=== PATIENT | female | born 1970 | race Two or more races ===

== ENCOUNTER 2018-03-21 10:21 | Outpatient (CLI) | payer BC, OTHER ==
[2018-03-21 10:53] LABS: BASOPHILS # (AUTO) 0.1 10^3/uL (0.0-0.1); BASOPHILS % (AUTO) 1.1 %; EOSINOPHILS # (AUTO) 0.2 10^3/uL (0.0-0.7); EOSINOPHILS % (AUTO) 2.3 %; HGB - HEMOGLOBIN 15.2 g/dL (12.0-16.0); LYMPHOCYTES # (AUTO) 2.9 10^3/uL (1.5-3.5); LYMPHOCYTES % (AUTO) 36.5 %; MEAN CORPUSCULAR HEMOGLOBIN 29.3 pg (27.0-31.0); MEAN CORPUSCULAR HGB CONC 35.4 g/dL (32.0-36.0); MEAN CORPUSCULAR VOLUME 82.8 fL (81.0-99.0); MEAN PLATELET VOLUME 7.6 fL (7.9-10.8); MONOCYTES # (AUTO) 0.4 10^3/uL (0.0-1.0); MONOCYTES % (AUTO) 4.6 %; NEUTROPHILS # (AUTO) 4.4 10^3/uL (1.5-6.6); NEUTROPHILS % (AUTO) 55.5 %; PLT - PLATELET COUNT 290 10^3/uL (130-450); RED BLOOD COUNT 5.18 10^6/uL (4.20-5.40); RED CELL DISTRIBUTION WIDTH 13.1 % (12.0-15.0)
[2018-03-21 11:24] LABS: ALBUMIN 4.3 g/dL (3.2-5.5); ALBUMIN/GLOBULIN RATIO 1.1 (1.0-2.2); ALKALINE PHOSPHATASE 73 IU/L (42-121); ALT ALANINE AMINOTRANSFERASE 37 IU/L (10-60); AST ASPARTATE AMINOTRANSFERASE 35 IU/L (10-42); BILIRUBIN,TOTAL 0.5 mg/dL (0.2-1.0); BUN - BLOOD UREA NITROGEN 16 mg/dL (6-20); CALCIUM 9.2 mg/dL (8.5-10.3); CARBON DIOXIDE - CO2 22 mmol/L (21-32); CHLORIDE 103 mmol/L (101-111); CHOL/HDL RATIO 3.9 (<4.4); CHOLESTEROL 163 mg/dL; CREATININE 0.7 mg/dL (0.4-1.0); GFR - MDRD 89 (>89); GLUCOSE 186 mg/dL (70-100); HDL CHOLESTEROL 42 mg/dL; LDL CHOLESTEROL,CALCULATED 80 mg/dL; LDL/HDL RATIO 1.9 (<4.4); SODIUM 134 mmol/L (135-145); TOTAL PROTEIN 8.1 g/dL (6.7-8.2); VLDL CHOLESTEROL 41 mg/dL
== END 2018-03-21 10:22 | disposition home or self-care (01) ==
LOC: LAB 10:21
PROVIDERS: ATTEND Obstetrics & Gynecology
DX: Z13.1 Encounter for screening for diabetes mellitus (principal); Z13.0 Encounter for screening for diseases of the blood and blood-forming organs and certain disorders involving the immune mechanism; Z13.220 Encounter for screening for lipoid disorders; Z13.21 Encounter for screening for nutritional disorder
CPT/HCPCS: 36415; 80053; 80061; 82306; 83721; 84443; 85025

== ENCOUNTER 2018-06-06 20:27 | Outpatient (CLI) | payer BC, OTHER ==
--- NOTE | 2018-06-07 11:06 | Ultrasound Report ---
Reason: ABD PERIMENOPAUSAL BLEEDING Procedure Date: 06/06/2018 Accession Number: [id number] Procedure: US - Pelvic w/Transvaginal CPT Code: FULL RESULT: EXAM: PELVIC ULTRASOUND EXAM DATE: 06/06/2018 09:17 PM. CLINICAL HISTORY: ABD PERIMENOPAUSAL BLEEDING. COMPARISON: None. TECHNIQUE: Realtime transabdominal pelvic scan performed to identify the uterus and adnexa and as an overview of other pelvic structures, followed by transvaginal scan to provide greater detail of the uterus and adnexa, with static image documentation. FINDINGS: Uterus: 8.4 x 4.1 x 7 cm, volume 126 cc. Anteverted position. Normal overall size and echotexture. Masses: None. Endometrium: 8 mm in the fundus. Echogenic thickened appearance, typical of secretory phase. Fundally, suggestion of 4 mm thick endometrial content iso-echoic to the endometrium. Separately, there is a echogenic focus within the endometrial soft tissue posteriorly, hyperechoic to endometrium, 0.7 x 0.6 x 0.5 cm and without demonstrable vascularity by color Doppler. Cervix: Unremarkable. Right Ovary: 1.4 x 1.0 x 2.0 cm, volume 1.5 cc. Normal echotexture and blood flow. Left Ovary: 3.5 x 1.9 x 2.5 cm, volume approximately cc. Normal echotexture and blood flow. Free Fluid: None. Other: None. IMPRESSION: 8 mm thick echogenic endometrium, appearance typical of secretory phase. Hyperechoic 0.7 cm focus/nodule within the endometrial layer in the posterior fundus. 4 mm thick fundal content within the endometrium. RADIA The above findings foci within the endometrium were discussed with the medical office nurse Megan on behalf of Frank Deshpande by Dr. Harjinder Sommers at 11:05 hrs on 06/07/18.
== END 2018-06-06 20:28 | disposition home or self-care (01) ==
LOC: DI 20:27
PROVIDERS: ATTEND Obstetrics & Gynecology
DX: N92.4 Excessive bleeding in the premenopausal period (principal); N85.9 Noninflammatory disorder of uterus, unspecified
CPT/HCPCS: 76830; 76856

== ENCOUNTER 2018-06-07 18:54 | Outpatient (CLI) | payer BC, OTHER ==
[2018-06-07 19:11] LABS: BASOPHILS # (AUTO) 0.1 10^3/uL (0.0-0.1); BASOPHILS % (AUTO) 0.9 %; EOSINOPHILS # (AUTO) 0.4 10^3/uL (0.0-0.7); EOSINOPHILS % (AUTO) 4.6 %; HGB - HEMOGLOBIN 13.7 g/dL (12.0-16.0); LYMPHOCYTES % (AUTO) 34.5 %; MEAN CORPUSCULAR HEMOGLOBIN 28.9 pg (27.0-31.0); MEAN CORPUSCULAR HGB CONC 34.7 g/dL (32.0-36.0); MEAN CORPUSCULAR VOLUME 83.4 fL (81.0-99.0); MEAN PLATELET VOLUME 7.5 fL (7.9-10.8); MONOCYTES # (AUTO) 0.6 10^3/uL (0.0-1.0); MONOCYTES % (AUTO) 6.8 %; NEUTROPHILS # (AUTO) 4.7 10^3/uL (1.5-6.6); NEUTROPHILS % (AUTO) 53.2 %; PLT - PLATELET COUNT 268 10^3/uL (130-450); RED BLOOD COUNT 4.74 10^6/uL (4.20-5.40); RED CELL DISTRIBUTION WIDTH 13.1 % (12.0-15.0); WHITE BLOOD COUNT 8.8 x10^3/uL (4.8-10.8)
== END 2018-06-07 18:55 | disposition home or self-care (01) ==
LOC: LAB 18:54
PROVIDERS: ATTEND Obstetrics & Gynecology
DX: N92.4 Excessive bleeding in the premenopausal period (principal)
CPT/HCPCS: 36415; 83001; 85025

== ENCOUNTER 2019-03-20 17:08 | Outpatient (CLI) | payer BC, OTHER ==
[2019-03-20 17:23] LABS: BASOPHILS # (AUTO) 0.1 10^3/uL (0.0-0.1); BASOPHILS % (AUTO) 0.8 %; EOSINOPHILS # (AUTO) 0.1 10^3/uL (0.0-0.7); EOSINOPHILS % (AUTO) 1.3 %; HGB - HEMOGLOBIN 14.9 g/dL (12.0-16.0); LYMPHOCYTES # (AUTO) 3.1 10^3/uL (1.5-3.5); LYMPHOCYTES % (AUTO) 36.9 %; MEAN CORPUSCULAR HEMOGLOBIN 28.9 pg (27.0-31.0); MEAN CORPUSCULAR VOLUME 82.7 fL (81.0-99.0); MEAN PLATELET VOLUME 9.4 fL (7.9-10.8); MONOCYTES # (AUTO) 0.6 10^3/uL (0.0-1.0); NEUTROPHILS # (AUTO) 4.5 10^3/uL (1.5-6.6); NEUTROPHILS % (AUTO) 53.8 %; PLT - PLATELET COUNT 332 10^3/uL (130-450); RED BLOOD COUNT 5.15 10^6/uL (4.20-5.40); RED CELL DISTRIBUTION WIDTH 12.6 % (12.0-15.0); WHITE BLOOD COUNT 8.4 x10^3/uL (4.8-10.8)
[2019-03-20 20:04] LABS: HCG UR QUAL NEGATIVE
== END 2019-03-20 17:09 | disposition home or self-care (01) ==
LOC: LAB 17:08
PROVIDERS: ATTEND Obstetrics & Gynecology
DX: N93.8 Other specified abnormal uterine and vaginal bleeding (principal); Z80.49 Family history of malignant neoplasm of other genital organs
CPT/HCPCS: 36415; 81025; 85025; 86850; 86900; 86901

== ENCOUNTER 2019-03-21 10:37 | Day surgery (SDC) | payer BC, OTHER ==
--- NOTE | 2019-03-21 07:14 | SURGERY HX AND PHYSICAL(T) ---
Surgical History & Physical - Chief Complaint/HPI History of Present Illness: Betsy is a 48-year-old G5, P3 initially seen for perimenopausal bleeding here for preop evaluation for TVH and bilateral salpingectomy. Mayito is well-known to this clinic. She has been seen for perimenopausal dysfunctional uterine bleeding. She is of [place] descent. After further evaluation, she is asked around her family found out that she is significant history of early onset endometrial cancer. She has lost 2 cousins this year from her age group. She underwent a hysteroscopy D&C which returned with absence of hyperplasia or malignancy. An IUD was placed. She continues to have bleeding and now has pain with intercourse that was not present before. Given the high risk of endometrial cancer given her family history, she is now interested in hysterectomy. We have discussed this in detail in the past. We have discussed risks, benefits, and alternatives. She is determined that this is the best option for her at current. She is 48 years old and has no further desire for childbearing. From prior exam: Reports having heavy bleeding with her menses although this was an improvement over prior to treatment. She is very distressed regarding her cancer risk. At our first visit we discussed her family history of endometrial cancer. She was unclear on the cause of of multiple first cousins.She has several first cousins that at an early age. Cause of for all of them has been confirmed to be endometrial cancer. This includes at least 4 first cousins. A number of women in her family have also had hysterectomies for dysfunctional uterine bleeding.She is quite nervous about her own risk Otherwise no changes in health history since time of prior exam. Risk Factors: Smoked Tobacco Use: Never smoker Passive Smoke Exposure: no HIV High Risk Behavior: no Caffeine Use: 1 drinks per day Exercise: no Seatbelt Use: 100 % Sun Exposure: frequently Alcohol Use: yes Type: liquor Drinks per day: <1 Drug Use: no Vital Signs: Patient Profile: 48 Years Old Female Height: 69.5 inches Weight: 189.2 pounds BMI: 27.64 Pt. in pain? no Vitals Entered By: Lou Husain LPN (March 16, 2019 3:37 PM) Meds Reviewed: Done Allergies Reviewed: Done Past Medical History: Cluster Migraines Seasonal allergies Pevic fracture Perimenopause A2 Past Surgical History: Hysteroscopy [employer] Review of Systems ROS Comments: As per HPI otherwise remaining systems are negative. Physical Constitutional: alert, no acute distress, well hydrated. Skin: normal turgor, normal color, no rashes. Head: atraumatic, normocephalic. Eyes: No conjunctival injection or scleral icterus Cardiovascular: RRR. Respiratory: no respiratory distress, clear to auscultation. Abdomen: nondistended, nontender, no guarding. Neurologic: normal. Psych: affect and mood appropriate, normal interaction, good eye contact. Vulva: See prior exam Impression & Recommendations: Problem # 1: Preop exam (ICD-V72.84) ([id number]) Preop examination for total vaginal hysterectomy and bilateral salpingectomy. We discussed risks, benefits, alternatives. Reviewed all surgical procedures carry risks of bleeding, infection, and damage nearby tissue and organs. Discussed the risk of infection with blood transfusion is relatively low. Risk of HIV is 1 in 2 million nationwide, risk of hepatitis is 1/million nationwide. Reviewed for possibility of transfusion reaction and possible management with medications. She is provided consent for blood transfusion. Reviewed that anatomically speaking that the vagina is full of bacteria. We cannot fully sterilized the vagina, nor would we want to. When the incision is made to release the uterus from the abdomen, a pathway for bacteria into the otherwise sterile abdominal cavity is created. For this reason we will give her IV antibiotics. She denies any allergies to antibiotics. We discussed the anatomical proximity of other organs near the uterus including but not limited to the bladder, ureters, and bowel. As surgeons, we used a number of surgical to techniques to avoid damaging any of these other organs. We reviewed, that despite her best efforts, sometimes injury occurs to these organs. We discussed that this may cause complicated post operative course. We also discussed the possibility of converting to an open or laparoscopic proc edure. She provided consent to all of the above. - PMH/PSH/Social Hx Does the pt have a hx of MRSA?: No Eyes, Ears, Nose, Throat: Chronic vision loss, Other Cardiovascular: None Respiratory: None Skin: None Endocrine/Autoimmune: None Gastrointestinal: None Urinary: Chronic bladder infection, Frequency Musculoskeletal: None Psychiatric: ADD/ADHD General: Colonoscopy - Home Meds and Allergies Home Medications: Ciclopirox [Penlac] 1 unit TOP DAILY 01/15/19 SUMAtriptan succinate [Sumatriptan Succinate] 100 mg PO DAILY PRN 01/15/19 Allergies/Adverse Reactions: Allergies Allergy/AdvReac Type Severity Reaction Status Date / Time lactose AdvReac gas, Verified 03/09/19 10:12 bloating - Vital Signs Height: 5 ft 9 in - Patient Review Patient Review: Problems were reviewed with the patient during this visit. Medications were reviewed with the patient during this visit. Allergies were reviewed this patient during this visit. Pertinent Tests Reviewed: All pertitent test for this patient were reviewed.
[2019-03-21] MEDS ORDERED: ePHEDrine 50 MG/ML VIAL IVP ONE (10:38)
[2019-03-21] MEDS ORDERED: MIDAZOLAM 2 MG/2 ML VIAL IVP ONE (10:38)
[2019-03-21] MEDS ORDERED: fentaNYL 100 MCG/2 ML VIAL IVP ONE (10:38)
[2019-03-21] MEDS ORDERED: ROCURONIUM 50 MG/5 ML VIAL IVP ONE (10:38)
[2019-03-21] MEDS ORDERED: PROPOFOL 200 MG/20 ML VIAL IVP ONE (10:38)
[2019-03-21] MEDS ORDERED: DEXAMETHASONE 4 MG/ML VIAL IVP ONE (10:38)
[2019-03-21] MEDS ORDERED: LACTATED RINGERS 1,000 ML IV ONE ×2 (10:49→15:22)
[2019-03-21] MEDS ORDERED: GABAPENTIN 400 MG CAPSULE ONE (10:53)
[2019-03-21] MEDS ORDERED: ACETAMINOPHEN 1,000 MG/100 ML 100 ML IV ONE (10:54)
[2019-03-21] MEDS ORDERED: CELECOXIB 100 MG CAPSULE PO ONE (10:54)
[2019-03-21] MEDS ORDERED: CEFAZOLIN SODIUM IN 0.9 % NACL 2 GM/100 ML BAG IV ONE (10:54)
--- NOTE | 2019-03-21 12:31 | ANESTHESIA ---
Pre-Anesthesia VS, & Labs - Diagnosis dysfunctional uterine bleeding - Procedure Total vaginal hysterectomy with bilateral salphingectomy Vital Signs: Temp Pulse Resp BP Pulse Ox 36.1 C L 68 16 132/85 H 97 03/21/19 11:00 03/21/19 11:00 03/21/19 11:00 03/21/19 11:00 03/21/19 11:00 Height 5 ft 9 in Weight (kg) 84.8 kg - NPO >8 hours - Is Patient ?: No (neg HCG) Home Medications and Allergies Ciclopirox [Penlac] 1 unit TOP DAILY 01/15/19 SUMAtriptan succinate [Sumatriptan Succinate] 100 mg PO DAILY PRN 01/15/19 Allergies/Adverse Reactions: Allergies Allergy/AdvReac Type Severity Reaction Status Date / Time lactose AdvReac gas, Verified 03/09/19 10:12 bloating Anes History & Medical History - Anesthetic History Anesthesia Complications: reports: Post-Operative Nausea/Vomiting - Medical History Cardiovascular: reports: None Pulmonary: reports: None Gastrointestinal: reports: None Urinary: reports: Chronic bladder infection, Frequency Musculoskeletal: reports: None Endocrine/Autoimmune: reports: None Skin: reports: None - Surgical History General: Colonoscopy Gynecologic: Dilation and currettage, Other Exam General: Alert Dental: WNL Mouth Opening: Greater than 4 Fingerbreadths Mallampati classification: II Thyromental Distance: greater than 6 cm Respiratory: Lungs clear Cardiovascular: Regular rate, Normal S1, Normal S2 Mental/Cognitive Status: Alert/Oriented X3 Plan Anesthesia Type: General Consent for Procedure(s) Verified and Reviewed: Yes Code Status: Attempt Resuscitation ASA classification: 2-Mild systemic disease Is this case an emergency?: Yes
[2019-03-21] MEDS ORDERED: LIDOCAINE 1%-EPI 1:100000 20 ML MDV ONE (12:33)
[2019-03-21] MEDS ORDERED: METHYLENE BLUE 0.5% 50 MG/10 ML AMPULE ONE (12:33)
[2019-03-21] MEDS ORDERED: SODIUM CHLORIDE FLUSH 0.9% 10 ML SYRINGE IVP PRN ×2 (16:35→16:37)
--- NOTE | 2019-03-21 16:41 | OPERATIVE REPORT ---
Operative Report - General Planned Procedure: Total vaginal hysterectomy and bilateral salpingectomy Pre-Op Diagnosis: Dysfunctional uterine bleeding, family hx endometrial cancer Procedure Performed: Total vaginal hysterectomy and bilateral salpingectomy Post Op Diagnosis: Same - Procedure Note Primary Surgeon: Darcy Adames MD Secondary Surgeon: Frank Driscoll MD Anesthesia Provider: Marcos Pathology: Uterus and cervix, bisected vertically Bilateral fallopian tubes, detached from uterus IV Fluids (mL): 1,000 Estimated Blood Loss (mL): 130 Urine Output (mL): 250 Indications: Dysfunctional uterine bleeding with failed medical management. Has strong family history of endometrial cancer Findings: Enlarged uterus with Mirena IUD in place. Normal ovaries with functional cyst on left ovary. Left sided paratubal cysts, removed with salpingectomy Complications: None - Other Other Information/Narrative: Consent was again confirmed. The patient was brought to the OR and underweight general anesthesia. She was placed in dorsal lithotomy with legs supported in yellowfin stirrups. Bimanual exam was performed. She was then prepared and draped in the usual sterile fashion. Casiano catheter was in place and backfilled with 30 cc of dilute methyline blue and clamped. SCDs were confirmed to be in place and operating. A surgical time out was performed. Administration of 2g IV cefazolin was confirmed. A weighted speculum was placed in the posterior vaginal vault. The cervix was grasped with a a double toothed tenaculum clamp on both its anterior and posterior lips. A total of 20 cc of 20mg vasopressin/100 cc was injected in a circumferential direction around the cervix. With downward traction, we made a circumferential incision of the vaginal mucosa with the bovie cautery. This allowed dissection and entrance into the anterior space. The posterior cul-de-sac was entered sharply in the same manner. A long necked weighted speculum was then placed in the vagina through the posterior space. The uterosacral ligaments were eclamped with Brett clamps and ligated with #0 Vicryl suture bilaterally. The cervicovesical space was then created by both blunt and sharp dissection. At no point was there spillage of methylene blue. A moistened sponge stick was placed in the posterior cul de sac to retract the bowel and patient was placed in Trendelenburg position. A laparoscopic Ligasure bipolar device was then used to seal and ligate each pedicle. The uterosacral ligaments were suture ligated as above. The cardinal ligaments, uterine vessels, broad ligaments, and utero-ovarian pedicles were sealed and ligated with the Ligasure device. The large size of the uterus both limited the mobilization and subsequenly, adequate visualization of the upper pedicles. Once the uterine vessels were secured, a long scalpel was used the bisect the uterus vertically at the midline. This allowed for better mobilization and we were able t safely visualize the uterine ovarian ligament and insertion of the fallopian tubes. The tubes and ovaries were visualized on either side. The tubes were transected from the uterine body and the uterine body was removed. The fallopian tubes were then grasped and elevated with Gilles clamps. The underlying mesosalpinx was sealed and transected in order to remove the fallopian tubes bilaterally. Ovaries were inspected as with findings noted above. We then removed the weighted duckbill speculum and placed a regular speculum in the vaginal vault and visualized the entire area. We inspected for hemostasis, and this was secured. The peritoneum was closed with 2-0 Vicryl with a running suture. The uterosacral ligaments were then fixed to the anterior and posterior vaginal cuff margins to aid in vaginal support. The vaginal cuff was then closed with interrupted figure of 8 sutures using 0-Vicryl. Hemostasis was excellent. The vaginal vault was cleared of debris. The sponge count was correct times 2 at this time. A Casiano catheter was then unclamped. The patients procedure was terminated. She was sent to the Recovery Room in good condition. Dr. Driscoll assisted with retraction, assistance with suturing, and sharing of surgical insight.
[2019-03-21] MEDS ORDERED: oxyCODONE 5 MG TABLET PO PRN (17:38)
[2019-03-21] MEDS ORDERED: HYDROmorphone 0.5 MG/0.5 ML SYRINGE IVP PRN (17:40)
[2019-03-21] MEDS ORDERED: ONDANSETRON 4 MG/2 ML VIAL IVP PRN (18:02)
[2019-03-21] MEDS ORDERED: ONDANSETRON ODT 4 MG TABLET TL PRN (18:02)
[2019-03-21] MEDS: SODIUM CHLORIDE 0.9% 1,000 ML IV SCH (18:29)
[2019-03-21] MEDS: KETOROLAC 30 MG/ML VIAL IVP PRN (18:30)
[2019-03-21] MEDS: SUMAtriptan 25 MG TABLET PO PRN ×2 (18:43→22:00)
[2019-03-21] MEDS: SODIUM CHLORIDE FLUSH 0.9% 10 ML SYRINGE IVP SCH ×2 (18:45)
[2019-03-21] MEDS ORDERED: ceFAZolin 2 GM in SODIUM CHLORIDE 0.9% 100ML 100 ML IV ONE (20:30)
[2019-03-21] MEDS ORDERED: METOCLOPRAMIDE 10 MG/2 ML VIAL IVP PRN (20:49)
[2019-03-21] MEDS: IBUPROFEN 600 MG TABLET PO SCH (21:53)
[2019-03-21] MEDS ORDERED: SUMAtriptan 25 MG TABLET PO ONE (21:54)
[2019-03-21] MEDS: ACETAMINOPHEN 500 MG TABLET PO PRN (21:59)
[2019-03-22] MEDS: KETOROLAC 30 MG/ML VIAL IVP PRN (00:14)
[2019-03-22] MEDS: IBUPROFEN 600 MG TABLET PO SCH ×3 (00:21→12:10)
[2019-03-22] MEDS: SODIUM CHLORIDE FLUSH 0.9% 10 ML SYRINGE IVP SCH ×4 (00:55→11:24)
[2019-03-22] MEDS: SODIUM CHLORIDE 0.9% 1,000 ML IV SCH ×2 (02:20→11:00)
[2019-03-22] MEDS: ACETAMINOPHEN 500 MG TABLET PO PRN ×2 (06:44→10:48)
[2019-03-22 06:56] LABS: BASOPHILS % (AUTO) 0.3 %; EOSINOPHILS % (AUTO) 0.2 %; HGB - HEMOGLOBIN 12.8 g/dL (12.0-16.0); LYMPHOCYTES # (AUTO) 1.8 10^3/uL (1.5-3.5); LYMPHOCYTES % (AUTO) 15.9 %; MEAN CORPUSCULAR HEMOGLOBIN 28.9 pg (27.0-31.0); MEAN CORPUSCULAR HGB CONC 34.8 g/dL (32.0-36.0); MEAN CORPUSCULAR VOLUME 83.1 fL (81.0-99.0); MONOCYTES # (AUTO) 0.7 10^3/uL (0.0-1.0); MONOCYTES % (AUTO) 6.5 %; NEUTROPHILS # (AUTO) 8.6 10^3/uL (1.5-6.6); NEUTROPHILS % (AUTO) 76.7 %; PLT - PLATELET COUNT 269 10^3/uL (130-450); RED BLOOD COUNT 4.43 10^6/uL (4.20-5.40); RED CELL DISTRIBUTION WIDTH 12.7 % (12.0-15.0); WHITE BLOOD COUNT 11.2 x10^3/uL (4.8-10.8)
[2019-03-22] MEDS ORDERED: ENOXAPARIN 40 MG/0.4 ML SYRINGE SUBQ SCH (09:00)
--- NOTE | 2019-03-22 13:20 | PROVIDER PROGRESS NOTE ---
Subjective - General Procedure Date: 03/21/19 Post Op Days: 1 - Other Other Information/Narrative: Doing well. Pain well managed on po pain meds. Taking tylenol and ibuprofen only at this time. Voiding. Ambualting. Feels ready for dishcarge. Objective - Patient Data Vital Signs: Vital Signs x48h Temp Pulse Resp BP Pulse Ox 03/22/19 09:29 98.1 F 74 14 116/65 96 03/22/19 09:00 98.1 F 74 14 116/65 96 Weight: Weight 03/20/19 03/21/19 03/22/19 23:59 23:59 23:59 Weight (kg) 84.8 kg Intake & Output: Intake and Output Totals x24h 03/20/19 03/21/19 03/22/19 23:59 23:59 23:59 Intake Total 2656 4335.25 Output Total 705 4175 Balance 1951 160.25 - Lab Results Lab Results: 03/22/19 06:20 Other Lab Results: Lab Results x24hrs 03/22/19 Range/Units 06:20 WBC 11.2 H (4.8-10.8) x10^3/uL RBC 4.43 (4.20-5.40) 10^6/uL Hgb 12.8 (12.0-16.0) g/dL Hct 36.8 L (37.0-47.0) % MCV 83.1 (81.0-99.0) fL MCH 28.9 (27.0-31.0) pg MCHC 34.8 (32.0-36.0) g/dL RDW 12.7 (12.0-15.0) % Plt Count 269 (130-450) 10^3/uL MPV 10.0 (7.9-10.8) fL Neut # (Auto) 8.6 H (1.5-6.6) 10^3/uL Lymph # (Auto) 1.8 (1.5-3.5) 10^3/uL [place] # (Auto) 0.7 (0.0-1.0) 10^3/uL Eos # (Auto) 0.0 (0.0-0.7) 10^3/uL Baso # (Auto) 0.0 (0.0-0.1) 10^3/uL Absolute Nucleated RBC 0.00 x10^3/uL Nucleated RBC % 0.0 /100WBC - Current Medications Current Medications: Current Medications Generic Name Dose Route Start Last Admin Trade Name Freq PRN Reason Stop Dose Admin Acetaminophen 1,000 mg 03/21/19 16:37 03/22/19 10:48 Tylenol PO 1,000 mg Q8HR PRN Administration Pain or Fever > 38C (100.4F) Enoxaparin Sodium 40 mg 03/22/19 09:00 03/22/19 10:52 Lovenox SUBQ 40 mg DAILY DIRK Administration Sodium Chloride 1,000 mls @ 125 mls/hr 03/21/19 19:00 03/22/19 11:00 Normal Saline 0.9% IV 125 mls/hr .Q8H DIRK Administration Ibuprofen 600 mg 03/21/19 18:00 03/22/19 12:10 Motrin PO 600 mg Q6HR DIRK Administration Ketorolac Tromethamine 30 mg 03/21/19 16:37 03/22/19 00:14 Toradol Inj (30mg) IVP 30 mg Q6HR PRN Administration PAIN Metoclopramide HCl 5 mg 03/21/19 20:49 03/21/19 22:21 Reglan Inj IVP 5 mg Q6HR PRN Administration Nausea / Vomiting Ondansetron HCl 4 mg 03/21/19 18:02 03/21/19 18:30 Zofran Inj IVP 4 mg Q4HR PRN Administration Nausea / Vomiting Oxycodone HCl 5 mg 03/21/19 17:38 03/21/19 17:46 Roxicodone PO 5 mg Q4HR PRN Administration PAIN Sodium Chloride 10 ml 03/21/19 17:00 03/22/19 11:00 Normal Saline Flush 0.9% IVP 10 ml 0100,0900,1700 DIRK Administration Sodium Chloride 10 ml 03/21/19 17:00 03/22/19 11:24 Normal Saline Flush 0.9% IVP Not Given 0100,0900,1700 DIRK Sumatriptan Succinate 100 mg 03/21/19 18:00 03/21/19 22:00 Imitrex PO 03/22/19 17:59 100 mg ONCE PRN Administration HEADACHE - Physical Exam Wound/Incisions: positive: Other (No vaginal bleeding) General Appearance: positive: No acute distress Neck: positive: Nml inspection Respiratory: positive: No respiratory distress Cardiovascular: positive: Regular rate & rhythm Abdomen: positive: Non-tender Extremities: positive: Non-tender, No pedal edema Neurologic/Psychiatric: positive: Oriented x3 Impression/Plan - Problem List Problem List: POD#1 Doing well post op Meeting goals for discharge DC to home Routine discharge instructions given
[2019-03-22 14:20] VITALS: BP 147/81
== END 2019-03-22 15:46 | disposition home or self-care (01) ==
LOC: SDS 10:37 → MS2 17:01 → SDS 03-22 15:46
PROVIDERS: ATTEND Obstetrics & Gynecology
PROC: 0UT77ZZ Resection of Bilateral Fallopian Tubes, Via Natural or Artificial Opening (ICD-10-PCS; 2019-03-21)
PROC: 0UT97ZZ Resection of Uterus, Via Natural or Artificial Opening (ICD-10-PCS; principal; 2019-03-21 12:00)
DX: D25.1 Intramural leiomyoma of uterus (principal); N85.00 Endometrial hyperplasia, unspecified; G43.809 Other migraine, not intractable, without status migrainosus; Z80.49 Family history of malignant neoplasm of other genital organs
CPT/HCPCS: 36415; 58262; 85025; A9270; J0131; J0690; J2765; J7120; 81025

== ENCOUNTER 2019-05-05 17:55 | Emergency (ER) | payer BC, OTHER ==
[2019-05-05 18:35] LABS: BILIRUBIN,URINE NEGATIVE (NEGATIVE); GLUCOSE, URINE (UA) 100 mg/dL (NEGATIVE); KETONES,URINE (UA) NEGATIVE (NEGATIVE); LEUKOCYTE ESTERASE, URINE NEGATIVE (NEGATIVE); NITRITE,URINE POSITIVE (NEGATIVE); OCCULT BLOOD,URINE LARGE (NEGATIVE); PH,URINE 6.5 PH (5.0-7.5); PROTEIN,URINE >=300 mg/dL (NEGATIVE); UROBILINOGEN,URINE 1 (NORMAL) E.U./dL (NORMAL)
[2019-05-05 18:50] LABS: CLARITY,URINE BLOODY (CLEAR)
[2019-05-05 18:58] LABS: RBC,URINE TNTC /HPF (0-5)
[2019-05-05 18:59] LABS: BACTERIA,URINE Few /HPF (None Seen); SQUAMOUS EPITHELIAL CELL,UR NONE SEEN (<= Few)
[2019-05-06] MEDS ORDERED: LIDOCAINE 1% 2 ML VIAL MC ONE (01:03)
[2019-05-06] MEDS ORDERED: cefTRIAXone 1 GM VIAL IM STA (01:03)
--- NOTE | 2019-05-06 01:24 | ED Physician Documentation ---
PD HPI FEMALE - Stated complaint Stated Complaint: FEMALE - Chief complaint Chief Complaint: UTI - History obtained from History obtained from: Patient - History of Present Illness Timing - onset: How many days ago (1-2) Timing - details: Abrupt onset Associated symptoms: Dysuria, Urinary frequency, Hematuria. No: Fever Contributing factors: No: Similar symptoms before: Diagnosis (similar to previous UTIs) Recently seen: Other (urgent care) - Additional information Additional information: c/o 1-2 days of urinary frequency, urgency, burning dysuria, and hematuria. She has had previous UTIs with same symptoms. She was evaluated in an urgent care center earlier today and prescribed macrobid. She presents at this time because symptoms persist; she has only had one dose of macrobid, but says she has always improved significantly with "two hours" (per patient) of the first dose of antibiotic for previous UTIs. Review of Systems Constitutional: denies: Fever GI: denies: Abdominal Pain, Nausea, Vomiting : reports: Dysuria, Frequency, Hematuria Musculoskeletal: denies: Back pain PD PAST MEDICAL HISTORY - Past Medical History Past Medical History: Yes Cardiovascular: None Respiratory: None Neuro: None Endocrine/Autoimmune: None GI: None [employer]ER: Fibroids : Chronic bladder infection, Frequency HEENT: Chronic vision loss Psych: ADD/ADHD Musculoskeletal: None Derm: None - Past Surgical History General: Colonoscopy /[employer]: Dilation and currettage, Hysterectomy, Other - Present Medications Home Medications: Ambulatory Orders Medication Instructions Recorded Confirmed Ciclopirox [Penlac] 1 unit TOP DAILY 01/15/19 03/09/19 SUMAtriptan succinate [Sumatriptan 100 mg PO DAILY PRN 01/15/19 03/21/19 Succinate] - Allergies Allergies/Adverse Reactions: Allergies Allergy/AdvReac Type Severity Reaction Status Date / Time lactose AdvReac gas, Verified 05/05/19 18:22 bloating - Social History Does the pt smoke?: No Smoking Status: Never smoker Does the pt drink ETOH?: No Does the pt have substance abuse?: No - Immunizations Immunizations are current?: Yes - POLST Patient has POLST: No PD ED PE NORMAL - Vitals Vital signs reviewed: Yes - General General: Alert and oriented X 3, No acute distress, Well developed/nourished - Abdomen Abdomen: Soft, Non tender - Back Back: No CVA TTP - Derm Derm: Normal color, Warm and dry Results - Vitals Vitals: Vital Signs - 24 hr 05/05/19 05/06/19 18:18 01:36 Temperature 36.8 C 37 C Heart Rate 69 82 Respiratory 15 18 Rate Blood Pressure 179/100 H 148/95 H O2 Saturation 98 98 Oxygen O2 Source Room air - Labs Labs: Laboratory Tests 05/05/19 18:25 Urine Color RED/BLOODY Urine Clarity BLOODY Urine pH 6.5 Ur Specific [place] 1.025 Urine Protein >=300 H Urine Glucose (UA) 100 H Urine Ketones NEGATIVE Urine Occult Blood LARGE H Urine Nitrite POSITIVE H Urine Bilirubin NEGATIVE Urine Urobilinogen 1 (NORMAL) Ur Leukocyte Esterase NEGATIVE Urine RBC TNTC H Urine WBC 11-25 H Ur Squamous Epith Cells NONE SEEN Urine Bacteria Few Ur Microscopic Review INDICATED Urine Culture Comments INDICATED PD MEDICAL DECISION MAKING - ED course Complexity details: reviewed results, re-evaluated patient, considered differential, d/w patient ED course: I explained to patient that antibiotics used to treat UTI typically take 1-2 days to have a noticeable effect (ie symptomatic improvement) and encouraged her to continue the macrobid. She is describing uncomfortable symptoms and thus I offered IM rocephin to try to speed up the onset of symptomatic improvement, and she opts for this. She is already taking azo and had no significant relief with tylenol. I offered ibuprofen, which she would like to take at home (declines dose at this time), and I offered hydrocodone/vicodin, but she declines this. Departure - Departure Disposition: 01 Home, Self Care Clinical Impression: Urinary tract infection Qualifiers: Urinary tract infection type: acute cystitis Hematuria presence: with hematuria Qualified Code(s): N30.01 - Acute cystitis with hematuria Condition: Good Instructions: ED UTI Cystitis Female Follow-Up: Vicky Scott ARNP [Primary Care Provider] - Comments: Continue the previously prescribed antibiotic (nitrofurantoin); as we discussed, oral antibiotics typically take 1-2 days to have a noticeable effect on urinary tract infections. The injection of antibiotic given tonight will hopefully bring symptom relief in a faster timeframe. If you worsen at any time, you can always come back to the emergency department for reevaluation. Discharge Date/Time: 05/06/19 01:38
[2019-05-06 01:38] VITALS: BP 148/95
== END 2019-05-06 01:38 | disposition home or self-care (01) ==
LOC: ED 17:55
DX: N30.01 Acute cystitis with hematuria (principal)
CPT/HCPCS: 81001; 81003; 87086; 96372; 99282; 99283

== ENCOUNTER 2019-05-18 09:00 | Outpatient (CLI) | payer BC, OTHER | END 2019-05-18 23:59 | disposition home or self-care (01) | LOC: LAB.R 09:00 | PROVIDERS: ATTEND Obstetrics & Gynecology | DX: R35.0 Frequency of micturition (principal) | CPT/HCPCS: 87086 ==

== ENCOUNTER 2019-06-01 06:27 | Outpatient (CLI) | payer BC, OTHER ==
--- NOTE | 2019-06-02 15:21 | Ultrasound Report ---
Reason: DYSURIA, RLQ ABD PAIN, URINARY FREQ Procedure Date: 06/01/2019 Accession Number: [id number] / [id number] Procedure: US - Retroperitoneal CPT Code: Final Report FULL RESULT: EXAM: RENAL ULTRASOUND EXAM DATE: 06/01/2019 07:56 AM. CLINICAL HISTORY: Dysuria, right lower quadrant abdominal pain, and urinary frequency since patient had catheter pulled out on 03/21/2019. 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 TECHNIQUE: Real-time scanning was performed with static images obtained. FINDINGS: Right Kidney: 12.4 x 5.2 x 5.7 cm. Normal parenchymal echotexture. No visualized shadowing stones or hydronephrosis. Left Kidney: 12.5 x 4.0 x 4.7 cm. Normal parenchymal echotexture. No visualized shadowing stones or hydronephrosis. Bladder (images included with same-day pelvic ultrasound): Bilateral jets seen. Initial bladder volume 288 mL. Postvoid bladder volume 44 mL. Other: Incidentally noted increased hepatic parenchymal echogenicity, indicating steatosis. IMPRESSION: 1. Steatotic liver. 2. Normal sonographic appearance of the kidneys. RADIA
--- NOTE | 2019-06-03 23:38 | Ultrasound Report ---
Reason: DYSURIA, ABD PAIN RLQ, URINARY FREQUENCY Procedure Date: 06/01/2019 Accession Number: [id number] / [id number] Procedure: US - Pelvic w/Transvaginal CPT Code: Final Report FULL RESULT: EXAM: PELVIC ULTRASOUND EXAM DATE: 06/01/2019 08:13 AM. CLINICAL HISTORY: Dysuria, abdominal pain right lower quadrant, urinary frequency. COMPARISON: None. TECHNIQUE: Realtime transabdominal pelvic scan performed to identify the uterus and adnexa and as an overview of other pelvic structures, followed by transvaginal scan to provide greater detail of the uterus and adnexa, with static image documentation. FINDINGS: Surgically absent. Heterogeneous structure with internal vascularity at the right aspect of the vaginal cuff measuring 1.7 x 2.1 x 1.9 cm. Right Ovary: 1.9 x 1.4 x 1.4 cm, volume 2 cc. Normal echotexture and blood flow. Dominant follicle measuring up to 1 cm in diameter. Left Ovary: Not well visualized. Free Fluid: None. Other: None. IMPRESSION: 1. Surgically absent uterus. 2. Heterogeneous structure with internal vascularity at the right aspect of the vaginal cuff measuring 1.7 x 2.1 x 1.9 cm. This is of unclear etiology. Recommend further evaluation with cross-sectional imaging such as CT or MRI of the pelvis with contrast RADIA
== END 2019-06-01 06:28 | disposition home or self-care (01) ==
LOC: DI 06:27
PROVIDERS: ATTEND Nurse Practitioner Gerontology
DX: N93.8 Other specified abnormal uterine and vaginal bleeding (principal); N92.4 Excessive bleeding in the premenopausal period; R10.31 Right lower quadrant pain; R30.0 Dysuria; R35.0 Frequency of micturition; K76.0 Fatty (change of) liver, not elsewhere classified; Z90.710 Acquired absence of both cervix and uterus; R93.89 Abnormal findings on diagnostic imaging of other specified body structures
CPT/HCPCS: 76770; 76830; 76856

== ENCOUNTER 2019-06-30 08:01 | Outpatient (CLI) | payer BC, OTHER ==
--- NOTE | 2019-07-02 11:59 | MRI Report ---
Reason: VAGINAL MASS Procedure Date: 06/30/2019 Accession Number: [id number] / [id number] Procedure: MRI - Pelvis W/WO CPT Code: Final Report FULL RESULT: EXAM: MR PELVIS WITH AND WITHOUT CONTRAST (MR FEMALE PELVIS) EXAM DATE: 06/30/2019 10:34 AM. CLINICAL HISTORY: Vaginal mass. COMPARISON: Pelvic ultrasound from 06/01/2019. TECHNIQUE: Multiplanar breath-hold T1, T2 obtained through the pelvis on an MR scanner. Images obtained before and after administration of 11 cc Gadavist intravenous contrast. FINDINGS: Reproductive Organs: Uterus: The uterus is surgically absent. Posterior to the left vaginal cuff, there appears to be a small T1 and T2 hypointense nodule measuring approximately 2.1 x 1.8 x 1.3 cm (series 301, image 20 and series 1401, image 28). There is susceptibility artifact at the vaginal cuff; however, there is suggestion of enhancement in this nodule. No definite abnormal soft tissue is demonstrated along the right vaginal cuff. Right ovary: Measures approximately 4.2 x 2.4 x 3.8 cm for an estimated volume of 19.9 cc. The majority of ovarian volume is composed of a unilocular cyst measuring approximately 3.3 x 2.3 x 3.2 cm (series 1501, image 27 and series 1401, image 19). No cyst septations or nodularity demonstrated. Left ovary: Measures approximately 2.1 x 1.1 x 1.6 cm for an estimated volume of 1.9 cc. Bowel: The visualized portions demonstrate no evidence for obstruction or inflammation. Bladder: Decompressed. Other: There is trace pelvic free fluid in the right adnexa. No pelvic adenopathy. There is heterogeneous marrow signal. Degenerative changes are present at the pubic symphysis. IMPRESSION: 1. Small, nonspecific nodule posterior to the left vaginal cuff is of uncertain etiology. Asymmetric soft tissue can be seen as sequela of surgery. However, if there is history of malignancy, local recurrence or metastatic deposit cannot be excluded. De-bridger malignancy of the vaginal cuff is rare. If there is history of malignancy, could consider further evaluation with PET/CT and/or biopsy. If there is no history of malignancy, follow-up pelvic CT or MRI could be considered in 3-6 months. 2. No definite nodule demonstrated along the right vaginal cuff. 3. Simple 3.3 cm right ovarian cyst. Annual sonographic follow-up is recommended for cysts of this size. MATT
== END 2019-06-30 08:02 | disposition home or self-care (01) ==
LOC: DI 08:01
PROVIDERS: ATTEND Nurse Practitioner Gerontology
DX: N89.8 Other specified noninflammatory disorders of vagina (principal); N83.291 Other ovarian cyst, right side
CPT/HCPCS: 72197

== ENCOUNTER 2019-12-06 12:20 | Outpatient (CLI) | payer BC, OTHER ==
--- NOTE | 2019-12-06 17:01 | Ultrasound Report ---
PROCEDURE: Pelvic w/Transvaginal INDICATIONS: Pelvic pain, prior hysterectomy. Asymmetric soft tissue prominence to the left of midli ne adjacent to the vaginal cuff seen on MR scanning 06/30/2019. TECHNIQUE: Real-time scanning was performed of the pelvic organs, with image documentation. Additional endovagi nal scanning was necessary due to incomplete visualization of the adnexal and endometrial structures by transabdominal scanning. COMPARISON: Prior pelvic MR scanning 06/30/2019. FINDINGS: Transabdominal scanning: Limited scanning through the kidneys shows no hydronephrosis. No pathologi c free abdominal or pelvic fluid. Endovaginal scanning: Uterus: Uterus is surgically absent. Ovaries: The left ovary can be seen, measuring 2.6 x 2.4 x 1.9 cm and contains a small simple cyst m easuring 1.8 x 1.6 x 1.1 cm. The right ovary is not seen. On transvaginal scanning at the expected po sition of the vaginal cuff a focal soft tissue prominence is again noted, measuring 1.5 x 1.4 x 1.4 c m. This corresponds to the area of prior asymmetry on MR scanning, from June of this year. It does not appear to have enlarged. IMPRESSION: Presumed postsurgical change at the vaginal cuff causing mild asymmetry in the postoperative soft tis sues, centered to the left of midline. This area is accurately evaluated by transvaginal ultrasound s pauly and given the absence of change from prior MR scanning benign etiology is the likely cause. F ollow-up transvaginal ultrasound targeted to this area in 6 months is recommended and assuming stabil ity over time no additional follow-up thereafter would appear warranted. Reviewed by: Ernesto Michaels MD on 12/06/2019 4:59 PM PDT Approved by: Ernesto Michaels MD on 12/06/2019 4:59 PM PDT Station ID: [id number]
== END 2019-12-06 12:21 | disposition home or self-care (01) ==
LOC: DI 12:20
PROVIDERS: ATTEND Obstetrics & Gynecology
DX: R93.89 Abnormal findings on diagnostic imaging of other specified body structures (principal); Z90.710 Acquired absence of both cervix and uterus
CPT/HCPCS: 76830; 76856

== ENCOUNTER 2020-02-14 08:10 | Outpatient (CLI) | payer BC, OTHER | END 2020-02-14 23:59 | disposition home or self-care (01) | LOC: COV 08:10 | PROVIDERS: ATTEND Family Medicine | DX: Z20.828 Contact with and (suspected) exposure to other viral communicable diseases (principal) ==

== ENCOUNTER 2020-11-12 08:00 | Outpatient (CLI) | payer BC, OTHER ==
[2020-11-12 18:36] LABS: BASOPHILS # (AUTO) 0.1 10^3/uL (0.0-0.1); BASOPHILS % (AUTO) 0.8 %; EOSINOPHILS # (AUTO) 0.1 10^3/uL (0.0-0.7); EOSINOPHILS % (AUTO) 1.4 %; HCT - HEMATOCRIT 41.6 % (37.0-47.0); LYMPHOCYTES # (AUTO) 2.3 10^3/uL (1.5-3.5); LYMPHOCYTES % (AUTO) 29.2 %; MEAN CORPUSCULAR HEMOGLOBIN 27.8 pg (27.0-31.0); MEAN CORPUSCULAR HGB CONC 33.7 g/dL (32.0-36.0); MEAN CORPUSCULAR VOLUME 82.7 fL (81.0-99.0); MEAN PLATELET VOLUME 10.4 fL (7.9-10.8); MONOCYTES # (AUTO) 0.4 10^3/uL (0.0-1.0); MONOCYTES % (AUTO) 5.3 %; NEUTROPHILS # (AUTO) 4.9 10^3/uL (1.5-6.6); PLT - PLATELET COUNT 290 10^3/uL (130-450); RED BLOOD COUNT 5.03 10^6/uL (4.20-5.40); RED CELL DISTRIBUTION WIDTH 12.9 % (12.0-15.0); WHITE BLOOD COUNT 7.7 x10^3/uL (4.8-10.8)
[2020-11-12 18:50] LABS: ESTIMATED AVERAGE GLUCOSE 209 mg/dL (70-100); HEMOGLOBIN A1c% 8.9 % (4.27-6.07)
[2020-11-12 18:54] LABS: THYROID STIMULATING HORMONE 0.95 uIU/mL (0.34-5.60)
[2020-11-12 18:57] LABS: ALBUMIN 4.2 g/dL (3.2-5.5); ALBUMIN/GLOBULIN RATIO 1.3 (1.0-2.2); ALKALINE PHOSPHATASE 69 IU/L (42-121); ALT ALANINE AMINOTRANSFERASE 45 IU/L (10-60); AST ASPARTATE AMINOTRANSFERASE 41 IU/L (10-42); BILIRUBIN,TOTAL 0.8 mg/dL (0.2-1.0); BUN - BLOOD UREA NITROGEN 15 mg/dL (6-20); CALCIUM 9.4 mg/dL (8.5-10.3); CARBON DIOXIDE - CO2 26 mmol/L (21-32); CHLORIDE 104 mmol/L (101-111); CHOL/HDL RATIO 3.4 (<4.4); CHOLESTEROL 177 mg/dL; CREATININE 0.8 mg/dL (0.4-1.0); GFR - MDRD 76 (>89); GLUCOSE 176 mg/dL (70-100); HDL CHOLESTEROL 52 mg/dL; LDL CHOLESTEROL,CALCULATED 65 mg/dL; LDL/HDL RATIO 1.3 (<4.4); POTASSIUM 3.9 mmol/L (3.5-5.0); SODIUM 138 mmol/L (135-145); TOTAL PROTEIN 7.4 g/dL (6.7-8.2); TRIGLYCERIDES 301 mg/dL; VLDL CHOLESTEROL 60 mg/dL
== END 2020-11-12 23:59 | disposition home or self-care (01) ==
LOC: LAB.WCP 08:00
PROVIDERS: ATTEND Nurse Practitioner Family
DX: E78.1 Pure hyperglyceridemia (principal); R73.9 Hyperglycemia, unspecified
CPT/HCPCS: 36415; 80053; 80061; 83036; 83721; 84443; 85025

== ENCOUNTER 2021-10-07 09:43 | Emergency (ER) | payer OTHER ==
--- NOTE | 2021-10-07 10:16 | ED Physician Documentation ---
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 ONset of feeling tightness in chest and heart racing. Went to school nurse and pulse oximeter showed normal oxygenation, but HR 198. SYmptoms then stopped spontaneously and HR then read 100. NURSe urged patient to come for evaluation. patient felt okay.) Timing - duration: Minutes (10) Timing - details: Abrupt onset, Now resolved (lasted about 10 minutes) Quality: Pressure, Tightness Location: Substernal Radiation: No: Jaw, Neck, Back Improved by: Nothing Worsened by: No: Inspiration, Movement Associated symptoms: Shortness of air, Palpitations. No: Nausea, Feeling faint / dizzy Similar symptoms before: Has not had sx before Recently seen: Not recently seen Review of Systems Constitutional: denies: Fever, Chills Nose: denies: Rhinorrhea / runny nose, Congestion Throat: denies: Sore throat Cardiac: denies: Pedal edema, Calf pain Respiratory: denies: Cough, Wheezing GI: denies: Nausea, Vomiting, Diarrhea Skin: denies: Rash Neurologic: denies: Near syncope, Altered mental status, Headache PD PAST MEDICAL HISTORY - Past Medical History Past Medical History: Yes Cardiovascular: None Respiratory: None Neuro: Headaches, Migraines Endocrine/Autoimmune: None GI: None ROUTER TENDER: Fibroids : Chronic bladder infection, Frequency HEENT: Chronic vision loss Psych: ADD/ADHD Musculoskeletal: None Derm: None - Past Surgical History Past Surgical History: Yes General: Colonoscopy /ROUTER TENDER: Dilation and currettage, Hysterectomy, Other - Present Medications Home Medications: Ambulatory Orders Medication Instructions Recorded Confirmed SUMAtriptan succinate [Sumatriptan 100 mg PO DAILY PRN 01/15/19 10/07/21 Succinate] Magnesium Oxide [Mag-Oxide] 400 mg PO DAILY 10 Days #20 tablet 10/07/21 Nitrofurantoin [Macrobid] 100 mg PO ONCE PRN 10/07/21 10/07/21 estradioL [Estradiol] 10 mg [place] ONCE 10/07/21 10/07/21 - Allergies Allergies/Adverse Reactions: Allergies Allergy/AdvReac Type Severity Reaction Status Date / Time lactose AdvReac gas, Verified 10/07/21 09:49 bloating - Social History Does the pt smoke?: No Smoking Status: Never smoker Does the pt drink ETOH?: Yes Does the pt have substance abuse?: No - Immunizations Immunizations are current?: Yes - POLST Patient has POLST: No PD ED PE NORMAL - Vitals Vital signs reviewed: Yes (initially high, but improved in ER.) - General General: Alert and oriented X 3, Well developed/nourished - HEENT HEENT: Pharynx benign - Neck Neck: Supple, no meningeal sign, No adenopathy - Cardiac Cardiac: RRR, No murmur, No rub - Respiratory Respiratory: No respiratory distress, Clear bilaterally - Abdomen Abdomen: Soft, Non tender - Derm Derm: Normal color, Warm and dry - Extremities Extremities: Normal ROM s pain, No edema, No calf tenderness / cord - Neuro Neuro: Alert and oriented X 3, No motor deficit, Normal speech Results - Vitals Vitals: Vital Signs - 24 hr 10/07/21 11:34 Heart Rate 101 H Respiratory 20 Rate Blood Pressure 129/106 H O2 Saturation 94 Oxygen O2 Source Room air - EKG (time done) 09:56 Rate: Rate (enter#) (93) Rhythm: NSR [place]: Normal Intervals: Normal [place] QRS: Normal (no delta waves) Ischemia: Normal ST segments. No: ST elevation c/w ischemia, ST depression Compare to prior EKG: Old EKG unavailable - Labs Labs: Laboratory Tests 10/07/21 10/07/21 10/07/21 10:46 10:46 10:46 WBC 7.8 RBC 5.42 H Hgb 15.4 Hct 43.1 MCV 79.5 L MCH 28.4 MCHC 35.7 RDW 12.1 Plt Count 274 MPV 9.7 Neut # (Auto) 5.0 Lymph # (Auto) 2.1 [place] # (Auto) 0.5 Eos # (Auto) 0.1 Baso # (Auto) 0.1 Absolute Nucleated RBC 0.00 Nucleated RBC % 0.0 Sodium 131 L Potassium 4.2 Chloride 97 L Carbon Dioxide 22 Anion Gap 12.0 BUN 12 Creatinine 0.8 Estimated GFR (MDRD) 75 L Glucose 292 H Calcium 10.0 Magnesium 1.5 L Total Bilirubin 0.8 AST 47 H ALT 42 Alkaline Phosphatase 78 Troponin I High Sens Total Protein 7.5 Albumin 4.2 Globulin 3.3 Albumin/Globulin Ratio 1.3 Lipase 32 TSH 1.09 10/07/21 10:46 WBC RBC Hgb Hct MCV MCH MCHC RDW Plt Count MPV Neut # (Auto) Lymph # (Auto) [place] # (Auto) Eos # (Auto) Baso # (Auto) Absolute Nucleated RBC Nucleated RBC % Sodium Potassium Chloride Carbon Dioxide Anion Gap BUN Creatinine Estimated GFR (MDRD) Glucose Calcium Magnesium Total Bilirubin AST ALT Alkaline Phosphatase Troponin I High Sens 23.8 H* Total Protein Albumin Globulin Albumin/Globulin Ratio Lipase TSH - Rads (name of study) chest xray Radiology: Prelim report reviewed (no acute process; normal exam. ), See rad report PD MEDICAL DECISION MAKING - ED course Complexity details: reviewed results (mag slightly low. K/Ca/NA okay. minimal troponin elevation makes sense in setting of SVT episode. ), re-evaluated patient, considered differential (presuming the pulse oximeter reading was correct HR 198, with abrupt on and off, would sound like episode of SVT. Resolved now. UNclear the yield of heart monitoring such as HOLter if isolated eipsode. ), d/w patient Departure - Departure Disposition: Home, Self Care Clinical Impression: Paroxysmal SVT (supraventricular tachycardia), Hypomagnesemia Condition: Stable Record reviewed to determine appropriate education?: Yes Instructions: ED Tachycardia Pat PSVT Follow-Up: DALLAS MAE MD [Physician No Access] - Prescriptions: Magnesium Oxide [Mag-Oxide] 400 mg PO DAILY 10 Days #20 tablet Comments: Stay well-hydrated. Regular diet. Regular activity. Its okay to resume work today. Your blood test did not show any significant abnormality. You are slightly low on magnesium so I would recommend a supplement such as magnesium oxide 400 mg daily for 10 days. Follow-up with your primary care provider as scheduled later this month. See if they want to pursue any further investigation such as a heart monitor that you wear. Problem is if the these episodes are so infrequent that it may be hard to catch it per se. Discharge Date/Time: 10/07/21 11:41
--- NOTE | 2021-10-07 10:48 | XRAY Report ---
PROCEDURE: Chest 1 View X-Ray INDICATIONS: chest pain TECHNIQUE: One view of the chest was acquired. COMPARISON: None FINDINGS: Surgical changes and devices: None. Lungs and pleura: No pleural effusions or pneumothorax. Mild patchy bilateral lower lung reticulonod ular density. Mediastinum: Mediastinal contours appear normal. Heart size is normal. Bones and chest wall: No suspicious bony lesions. Overlying soft tissues appear unremarkable. IMPRESSION: Mild bibasilar atelectasis versus pneumonia. Reviewed by: Prateek Narayan MD on 10/07/2021 10:47 AM PDT Approved by: Prateek Narayan MD on 10/07/2021 10:47 AM PDT Station ID: [id number]
[2021-10-07 10:53] LABS: BASOPHILS # (AUTO) 0.1 10^3/uL (0.0-0.1); BASOPHILS % (AUTO) 0.9 %; EOSINOPHILS # (AUTO) 0.1 10^3/uL (0.0-0.7); EOSINOPHILS % (AUTO) 1.8 %; HCT - HEMATOCRIT 43.1 % (37.0-47.0); HGB - HEMOGLOBIN 15.4 g/dL (12.0-16.0); LYMPHOCYTES # (AUTO) 2.1 10^3/uL (1.5-3.5); LYMPHOCYTES % (AUTO) 27.3 %; MEAN CORPUSCULAR HEMOGLOBIN 28.4 pg (27.0-31.0); MEAN CORPUSCULAR HGB CONC 35.7 g/dL (32.0-36.0); MEAN CORPUSCULAR VOLUME 79.5 fL (81.0-99.0); MEAN PLATELET VOLUME 9.7 fL (7.9-10.8); MONOCYTES # (AUTO) 0.5 10^3/uL (0.0-1.0); MONOCYTES % (AUTO) 5.7 %; NEUTROPHILS % (AUTO) 63.9 %; PLT - PLATELET COUNT 274 10^3/uL (130-450); RED BLOOD COUNT 5.42 10^6/uL (4.20-5.40); RED CELL DISTRIBUTION WIDTH 12.1 % (12.0-15.0); WHITE BLOOD COUNT 7.8 x10^3/uL (4.8-10.8)
[2021-10-07 11:09] LABS: ALBUMIN 4.2 g/dL (3.2-5.5); ALBUMIN/GLOBULIN RATIO 1.3 (1.0-2.2); BILIRUBIN,TOTAL 0.8 mg/dL (0.2-1.0); CREATININE 0.8 mg/dL (0.4-1.0); MAGNESIUM 1.5 mg/dL (1.7-2.8); POTASSIUM 4.2 mmol/L (3.5-5.0); TOTAL PROTEIN 7.5 g/dL (6.7-8.2)
[2021-10-07] MEDS ORDERED: MAGNESIUM OXIDE 400 MG TABLET PO STA (11:25)
[2021-10-07 11:35] VITALS: BP 129/106
== END 2021-10-07 11:41 | disposition home or self-care (01) ==
LOC: ED 09:43
DX: I47.1 Supraventricular tachycardia (principal); E83.42 Hypomagnesemia
CPT/HCPCS: 36415; 71045; 80053; 83690; 83735; 84443; 84484; 85025; 93005; 99284; A9270